=== PATIENT | female | born 1990 | race Caucasian/White ===

== ENCOUNTER 2019-08-01 10:28 | Emergency (ER) | payer MEDICAID ==
[~2019-08-01] VITALS: Ht 154.9 cm; Wt 79.0 kg
[2019-08-01 10:31] VITALS: BP 146/96
[2019-08-01 10:59] LABS: URINE HCG NEGATIVE (NEG)
[2019-08-01 11:00] LABS: CLARITY,URINE SLIGHTLY CLOUDY (Clear); COLOR,URINE YELLOW (Yellow); GLUCOSE, URINE >=1000 mg/dl (Neg); KETONES,URINE NEGATIVE (Neg); LEUKOCYTE ESTERASE ,URINE NEGATIVE (Neg); NITRITES, URINE NEGATIVE (Neg); OCCULT BLOOD,URINE NEGATIVE (Neg); PH,URINE 5.5 (4.8-8.0); PROTEIN,URINE NEGATIVE (Neg); UROBILINOGEN,URINE 0.2 E.U/dL (0.2-1.0)
[2019-08-01] MEDS ORDERED: PHEN-786 PO (11:01)
[2019-08-01] MEDS ORDERED: CEPH-572 PO (11:01)
[2019-08-01 11:05] LABS: UA COLLECTION TYPE CLN CATCH MIDSTREAM
[2019-08-01 11:06] LABS: BACTERIA,URINE 4+ /HPF (Neg); MUCUS STRANDS NONE SEEN /LPF (Neg); SQUAMOUS EPITHELIAL CELL,UR FEW /LPF (FEW); WBC,URINE 0-4 /HPF (0-4)
[2019-08-01 11:53] LABS: ANION GAP 5 (8-16); BLOOD UREA NITROGEN 8 MG/DL (7-18); BUN/CREATININE RATIO 10.7 (6.6-38.0); CALCIUM 9.5 MG/DL (8.5-10.1); CHLORIDE 101 MMOL/L (99-107); CREATININE 0.75 MG/DL (0.40-0.90); GLUCOSE 262 MG/DL (70-104); SODIUM 138 MMOL/L (135-145); TOTAL CARBON DIOXIDE 31.8 MMOL/L (24-32); eGFR 90 ML/MIN
[2019-08-01 12:02] LABS: HEMOGLOBIN A1C 10.7 % (4.5-6.2)
[2019-08-01] MEDS ORDERED: METF-950 PO (12:08)
[2019-08-01 12:52] LABS: ALANINE AMINOTRANSFERASE 34 U/L (12-78); ALBUMIN/GLOBULIN RATIO 0.9 (1.1-1.5); ALKALINE PHOSPHATASE 161 IU/L (46-116); ASPARTATE AMINO TRANSFERASE 21 U/L (10-37); BILIRUBIN,TOTAL 0.3 MG/DL (0.1-1.0); TOTAL PROTEIN 8.6 G/DL (6.4-8.2)
== END 2019-08-01 12:24 | disposition home or self-care (01) ==
LOC: ER 10:28
DX: N39.0 Urinary tract infection, site not specified (principal); E11.9 Type 2 diabetes mellitus without complications; Z79.899 Other long term (current) drug therapy
CPT/HCPCS: 36415; 80048; 80076; 81001; 81025; 83036; 87077; 87088; 87186; 99283

== ENCOUNTER 2025-02-17 18:04 | Emergency (ER) | payer MEDICAID ==
[~2025-02-17] VITALS: Ht 154.9 cm; Wt 75.8 kg
[~2025-02-17 18:04] MED LIST: METF-1203 PO; PHEN-786 PO
--- NOTE | 2025-02-17 18:39 | RADIOLOGY REPORT ---
CLINICAL INDICATION: FOOT PAIN,right TECHNIQUE: 3 radiographic views of the right foot were obtained. Comparison: None FINDINGS/IMPRESSION: There is subtle cortical step-off over the head of the 5th toe proximal phalanx. Recommend correlation with point tenderness for possible nondisplaced/ minimally displaced fracture. No dislocation. There is moderate soft tissue edema over the dorsal hind to midfoot.
--- NOTE | 2025-02-17 19:05 | Physician Documentation ---
History of Present Illness ~ Chief Complaint: Foot pain Stated Complaint: RIGHT ANKLE PAIN Time Seen by MD: 18:54 Primary Medical Doctor: shahab [facility] 35-year-old female presents to the ED with a complaint of a right foot and ankle pain after falling yesterday while roughhousing with her dad. States she has 5th toe pain and developed bruising around her ankle.. Denies any head strikes. Denies any numbness or tingling Tetanus witin 5 years: No Medication Reconciliation Allergies: Coded Allergies: No Known Allergies (Unverified , 02/17/25) Scheduled Metformin HCl (Metformin HCl), 1 TAB PO BID Scheduled PRN Phenazopyridine Hcl (Pyridium tablet), 2 TAB PO Q8H PRN for urinary burning Past Medical History Past Medical History: No Pertinent History Past Surgical History: no surgical history Alcohol Use: None Drug Use: none Lives with: Mother Lives In: Home Review of Systems All Other Systems at this time: Reviewed and Negative ROS As stated above in the HPI, otherwise all systems are reviewed and negative. Physical Exam Vital Signs: Temperature: 97.8, Source: Temporal, Heart Rate: 88, Respiratory Rate: 16, BP: 148/85, Pulse Oximetry: 96, Weight: 75.800 Oxygen Flow Rate: 0 Physical Exam General: Alert, no apparent distress. Extremities: In notable swelling around the right malleolus and midfoot region with developing ecchymosis. No metatarsal deformity point tenderness to the 5th proximal phalynx Neurologic: Oriented x4. Psychiatric: Normal mood and affect. Skin: Normal color, warm and dry. No edema, no ecchymosis. 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 Going to gee tape the toe in place her in a Velcro ankle brace as I suspect she has not ankle sprain as well. No evidence of fractures in the ankle. Toe Diff Dx:Considerations: Include: Abrasion, Cellulitis, Contusion, Dislocation, Felon, Fracture, Hematoma, Laceration, Neurovascular injury, Open fracture, Paronychia, Subungual hematoma, Other Departure Disposition: HOME / SELF CARE / HOMELESS Impression: Primary Impression: Fracture of foot Additional Impressions: Sprain of foot Muscle strain Condition: Stable Discharge Instructions: Sprains Additional Instructions: you have a small fracture in your right 5th toe and likely an ankle sprain. I recommend using ice ibuprofen to help with the pain and inflammation. You can follow up with primary care for further evaluation if your symptoms do not subside. Usually these kinds of fractures heal on their own Referrals: NO PRIMARY CARE PROVIDER (PCP) Signature Scribe Signature: o Attestation: Scribed for Rafael Mehta Internet Project Manager by Rafael Burogs NP . 02/17/25 19:22 RAFAEL MEHTA NP Feb 17, 2025 19:05
[2025-02-17 19:44] VITALS: BP 142/80; PULSE 82; RESP 18; TEMP 98.6; O2SAT 99
== END 2025-02-17 19:46 | disposition home or self-care (01) ==
LOC: ER 18:05
DX: S92.511A Displaced fracture of proximal phalanx of right lesser toe(s), initial encounter for closed fracture (principal); Z79.84 Long term (current) use of oral hypoglycemic drugs; W18.39XA Other fall on same level, initial encounter; Y93.83 Activity, rough housing and horseplay; Y92.89 Other specified places as the place of occurrence of the external cause; Y99.8 Other external cause status
CPT/HCPCS: 29515; 73630; 99283; L1930; 12004